=== PATIENT | male | born 1940 | race African-American/Black ===

== ENCOUNTER 2018-12-21 18:26 | Emergency (ER) | payer MEDICARE, OTHER ==
[~2018-12-21] VITALS: Ht 177.8 cm; Wt 97.5 kg
[~2018-12-21 18:26] MED LIST: BRIM5DRO2 OP; CIPR500T94 PO; LATA2.5D3 EACHEYE; TAMS0.4C97 PO
[2018-12-21 19:30] LABS: BILIRUBIN,URINE MODERATE (NEG); CLARITY,URINE CLOUDY; COLOR,URINE RED; NITRITE,URINE NEGATIVE (NEG); PH,URINE 6.5; PROTEIN,URINE 100 mg/dL (NEG-TRACE)
[2018-12-21 19:39] LABS: BACTERIA,URINE 0 /HPF (0-FEW); RBC,URINE TNTC /HPF (0-2); SQUAMOUS EPITHELIAL CELL,UR OCC /LPF; WBC,URINE 0 /HPF (0-4)
[2018-12-21] MEDS ORDERED: IV NORMAL SALINE 1000ML BAG 1,000 ML IV ONE (19:45)
--- NOTE | 2018-12-21 20:01 | PHYS DOC ---
Past Medical History Past Medical History: No Pertinent History Past Surgical History: No Surgical History Alcohol Use: None Drug Use: None Adult General Chief Complaint Chief Complaint: HIP PAIN HPI HPI Patient is a 78 year old male who presents with SI joint pain. He states the pain started two weeks ago. He describes it as a rubbing/crushing pain with no radiation. Sitting and bending over makes his pain worse. Standing, laying down, and urination relieves his pain. He denies any trauma to the area. Additionally, he reports hematuria that started two days ago. Patient denies any numbness or tingling in his right leg. [] Review of Systems Review of Systems Constitutional: Denies fever or chills [] Eyes: Denies redness or eye pain [] HENT: Denies nasal congestion or sore throat [] Respiratory: Denies cough or shortness of breath [] Cardiovascular: Denies chest pain or palpitations [] GI: Denies abdominal pain, nausea, vomiting, bloody stools or diarrhea [] : Reports hematuria, denies dysuria [] Musculoskeletal: Reports right sided SI joint pain, denies knee or ankle pain [] Integument: Denies rash or skin lesions [] Neurologic: Denies headache, focal weakness or sensory changes [] Complete systems were reviewed and found to be within normal limits, except as documented in this note. Current Medications Current Medications Current Medications Medications (Trade) Dose Ordered Sig/Geovany Start Time Stop Time Status Last Admin Dose Admin Dexamethasone Sodium Phosphate (Decadron) 10 mg 1X ONCE 12/21/18 21:00 12/21/18 21:01 DC 12/21/18 21:08 10 MG Fentanyl Citrate (Fentanyl 2ml Vial) 50 mcg 1X ONCE 12/21/18 21:00 12/21/18 21:01 DC 12/21/18 21:08 50 MCG Sodium Chloride 1,000 ml @ 1,000 mls/hr 1X ONCE 12/21/18 19:45 12/21/18 20:44 DC 12/21/18 20:12 1,000 MLS/HR Allergies Allergies Allergies Coded Allergies Type Severity Reaction Last Updated Verified No Known Drug Allergies 12/13/14 No Physical Exam Physical Exam Constitutional: No acute distress, non-toxic appearance. [] HENT: Normocephalic, atraumatic, bilateral external ears normal. [] Eyes: EOMI, conjunctiva normal, no discharge. [] Neck: Normal range of motion, no tenderness, supple. [] Cardiovascular:Heart rate regular rhythm, no murmur [] Lungs & Thorax: Bilateral breath sounds clear to auscultation [] Abdomen: Bowel sounds normal, soft, no tenderness, no rebound, rigidity, or guarding. [] Skin: Warm, dry, no erythema, no rash. [] Back: Right SI joint pain, no midline lumbar or thoracic pain, no CVA tenderness. [] Extremities: No tenderness, no cyanosis, no edema. [] Neurologic: Alert and oriented X 3, no focal deficits noted. [] Psychologic: Affect normal, mood normal. [] Current Patient Data Vital Signs Vital Signs Date Time Temp Pulse Resp B/P (MAP) Pulse Ox O2 Delivery O2 Flow Rate FiO2 12/21/18 21:00 70 16 140/80 (100) 99 Room Air 12/21/18 19:00 98.5 98.5 Lab Values Laboratory Tests Test 12/21/18 18:50 12/21/18 20:00 Urine Collection Type Unknown Urine Color Red Urine Clarity Cloudy Urine pH 6.5 Urine Specific [place] 1.025 Urine Protein 100 mg/dL (NEG-TRACE) Urine Glucose (UA) Negative mg/dL (NEG) Urine Ketones (Stick) Trace mg/dL (NEG) Urine Blood Large (NEG) Urine Nitrite Negative (NEG) Urine Bilirubin Moderate (NEG) Urine Urobilinogen Dipstick 1.0 mg/dL (0.2 mg/dL) Urine Leukocyte Esterase Small (NEG) Urine RBC Tntc /HPF (0-2) Urine WBC 0 /HPF (0-4) Urine Squamous Epithelial Cells Occ /LPF Urine Bacteria 0 /HPF (0-FEW) White Blood Count 11.6 x10^3/uL (4.0-11.0) H Red Blood Count 4.81 x10^6/uL (4.30-5.70) Hemoglobin 13.2 g/dL (13.0-17.5) Hematocrit 40.7 % (39.0-53.0) Mean Corpuscular Volume 85 fL (79-100) Mean Corpuscular Hemoglobin 28 pg (25-35) Mean Corpuscular Hemoglobin Concent 33 g/dL (31-37) Red Cell Distribution Width 14.9 % (11.5-14.5) H Platelet Count 263 x10^3/uL (140-400) Neutrophils (%) (Auto) 62 % (31-73) Lymphocytes (%) (Auto) 22 % (24-48) L Monocytes (%) (Auto) 12 % (0-9) H Eosinophils (%) (Auto) 3 % (0-3) Basophils (%) (Auto) 1 % (0-3) Neutrophils # (Auto) 7.2 x10^3uL (1.8-7.7) Lymphocytes # (Auto) 2.6 x10^3/uL (1.0-4.8) Monocytes # (Auto) 1.4 x10^3/uL (0.0-1.1) H Eosinophils # (Auto) 0.3 x10^3/uL (0.0-0.7) Basophils # (Auto) 0.1 x10^3/uL (0.0-0.2) Prothrombin Time 13.9 SEC (11.7-14.0) Prothrombin Time INR 1.1 (0.8-1.1) PTT 32 SEC (24-38) Sodium Level 144 mmol/L (136-145) Potassium Level 4.5 mmol/L (3.5-5.1) Chloride Level 106 mmol/L (98-107) Carbon Dioxide Level 28 mmol/L (21-32) Anion Gap 10 (6-14) Blood Urea Nitrogen 15 mg/dL (8-26) Creatinine 1.4 mg/dL (0.7-1.3) H Estimated GFR (Cockcroft-Gault) 59.3 BUN/Creatinine Ratio 11 (6-20) Glucose Level 101 mg/dL (70-99) H Calcium Level 8.6 mg/dL (8.5-10.1) Magnesium Level 2.0 mg/dL (1.8-2.4) Total Bilirubin 0.6 mg/dL (0.2-1.0) Aspartate Amino Transferase (AST) 16 U/L (15-37) Alanine Aminotransferase (ALT) 17 U/L (16-63) Alkaline Phosphatase 65 U/L (46-116) Total Protein 7.7 g/dL (6.4-8.2) Albumin 3.8 g/dL (3.4-5.0) Albumin/Globulin Ratio 1.0 (1.0-1.7) Lipase 115 U/L (73-393) Laboratory Tests 12/21/18 20:00 Laboratory Tests 12/21/18 20:00 EKG EKG [] Radiology/Procedures Radiology/Procedures PROCEDURE: CT ABDOMEN PELVIS WO CONTRAST CT study of the abdomen and pelvis without contrast Clinical indications: Hematuria. Right SI joint pain. History of bladder stones. TECHNIQUE: Noncontrast helical CT scanning of the abdomen and pelvis was performed. Without contrast, the sensitivity to detect artery pathology and GI tract pathology is decreased. PQRS compliance Statement One or more of the following individualized dose reduction techniques were utilized for this study: 1. Automated exposure control 2. Adjustment of the mA and/or kV according to patient size 3. Use of iterative reconstruction technique COMPARISON: November 21, 2014. FINDINGS: The liver and spleen and pancreas are homogeneous in appearance on this noncontrast study. The gallbladder is distended but no gallbladder wall thickening is evident. No extra hepatic biliary ductal dilatation is seen. No adrenal mass is evident. No focal aneurysmal dilatation of the abdominal aorta is seen. Right renal cysts are seen. No hydronephrosis or hydroureter is seen. No renal stone or ureteral stone is evident. There is a stone within the urinary bladder measuring 24 mm. The urinary bladder wall appears smooth in today's study. Prostate gland is enlarged measuring 5.6 cm in transverse dimension. The appendix is normal. No obstructive bowel pattern is evident. No free air or free fluid or mesenteric edema is seen. Calcified granuloma of the posterior right lung base is seen. No lytic process is seen. IMPRESSION: Urinary bladder stone. No ureteral stone or hydronephrosis or hydroureter is evident. Enlarged prostate gland. The gallbladder is distended but no gallbladder wall thickening is evident. The gallbladder measures almost 10 cm in length. No other acute abnormality of the abdomen or pelvis is evident. Electronically signed by: Robert Ceballos MD (12/21/2018 9:07 PM) [facility] DICTATED and SIGNED BY: ROBERT CEBALLOS MD[] Course & Med Decision Making Course & Med Decision Making 78 year-old male who presents right SI joint pain for 2 weeks. Additionally he reports painless hematuria for two days. He denies any trauma to the area, however due to the painless hematuria a CT scan was ordered. Symptomatic treatment provided with interval improvement. Labs and imaging were obtained and posted to chart. She demonstrated bladder stone likely causing his hematuria. Nature and provided with interval improvement. Encourage patient to take ibuprofen and Tylenol for any pain as well as providing a prescription for Norflex. Provided patient with referral to PM&R doctor and urologist. Patient stable for discharge with outpatient follow-up with PCP. Discussed findings and plan with patient and family, who acknowledge understanding and agreement. Dragon Disclaimer Dragon Disclaimer This electronic medical record was generated, in whole or in part, using a voice recognition dictation system. Departure Departure Impression: Primary Impression: Hematuria Additional Impressions: Bladder stone Renal cyst SI (sacroiliac) joint inflammation Disposition: HOME, SELF-CARE Condition: STABLE Referrals: NO PCP (PCP) LOBO ESPOSITO MD, BRIAN N MD Patient Instructions: Hematuria, Adult, Sacroiliac Joint Dysfunction Scripts Orphenadrine Citrate (ORPHENADRINE CITRATE) 100 Mg Tablet.er 100 MG PO BID PRN for MUSCLE PAIN, #14 Prov: ALONDRA BAXTER DO 12/21/18 Problem Qualifiers Primary Impression: Hematuria Hematuria type: unspecified type Qualified Codes: R31.9 - Hematuria, unspecified ALONDRA BAXTER DO Dec 21, 2018 20:01
[2018-12-21 20:15] LABS: BASO # 0.1 x10^3/uL (0.0-0.2); BASO % 1 % (0-3); EOS # 0.3 x10^3/uL (0.0-0.7); EOS % 3 % (0-3); HEMATOCRIT 40.7 % (39.0-53.0); HEMOGLOBIN 13.2 g/dL (13.0-17.5); LYMPH # 2.6 x10^3/uL (1.0-4.8); LYMPH % 22 % (24-48); MEAN CORPUSCULAR HEMOGLOBIN 28 pg (25-35); MEAN CORPUSCULAR HGB CONC 33 g/dL (31-37); MEAN CORPUSCULAR VOLUME 85 fL (79-100); MONO # 1.4 x10^3/uL (0.0-1.1); MONO % 12 % (0-9); NEUT # 7.2 x10^3uL (1.8-7.7); NEUT % 62 % (31-73); PLATELET COUNT 263 x10^3/uL (140-400); RED BLOOD COUNT 4.81 x10^6/uL (4.30-5.70); RED CELL DISTRIBUTION WIDTH 14.9 % (11.5-14.5); WHITE BLOOD COUNT 11.6 x10^3/uL (4.0-11.0)
[2018-12-21 20:20] LABS: CALCIUM 8.6 mg/dL (8.5-10.1); CREATININE 1.4 mg/dL (0.7-1.3); GFR 59.3; POTASSIUM 4.5 mmol/L (3.5-5.1)
[2018-12-21 20:24] LABS: PROTHROMBIN TIME PATIENT 13.9 SEC (11.7-14.0)
[2018-12-21 20:26] LABS: ALBUMIN 3.8 g/dL (3.4-5.0); TOTAL BILIRUBIN 0.6 mg/dL (0.2-1.0); TOTAL PROTEIN 7.7 g/dL (6.4-8.2)
[2018-12-21 21:00] VITALS: BP 140/80
[2018-12-21] MEDS ORDERED: fentaNYL PF VIAL 100 MCG/2 ML VIAL IV ONE (21:00)
[2018-12-21] MEDS ORDERED: DEXAMETHASONE SOD PHOS 20 MG/5 ML VIAL. IV ONE (21:00)
--- NOTE | 2018-12-21 21:11 | RAD ---
CT study of the abdomen and pelvis without contrast Clinical indications: Hematuria. Right SI joint pain. History of bladder stones. TECHNIQUE: Noncontrast helical CT scanning of the abdomen and pelvis was performed. Without contrast, the sensitivity to detect artery pathology and GI tract pathology is decreased. PQRS compliance Statement One or more of the following individualized dose reduction techniques were utilized for this study: 1. Automated exposure control 2. Adjustment of the mA and/or kV according to patient size 3. Use of iterative reconstruction technique COMPARISON: November 21, 2014. FINDINGS: The liver and spleen and pancreas are homogeneous in appearance on this noncontrast study. The gallbladder is distended but no gallbladder wall thickening is evident. No extra hepatic biliary ductal dilatation is seen. No adrenal mass is evident. No focal aneurysmal dilatation of the abdominal aorta is seen. Right renal cysts are seen. No hydronephrosis or hydroureter is seen. No renal stone or ureteral stone is evident. There is a stone within the urinary bladder measuring 24 mm. The urinary bladder wall appears smooth in today's study. Prostate gland is enlarged measuring 5.6 cm in transverse dimension. The appendix is normal. No obstructive bowel pattern is evident. No free air or free fluid or mesenteric edema is seen. Calcified granuloma of the posterior right lung base is seen. No lytic process is seen. IMPRESSION: Urinary bladder stone. No ureteral stone or hydronephrosis or hydroureter is evident. Enlarged prostate gland. The gallbladder is distended but no gallbladder wall thickening is evident. The gallbladder measures almost 10 cm in length. No other acute abnormality of the abdomen or pelvis is evident. Electronically signed by: Florentino Ceballos MD (12/21/2018 9:07 PM) [facility]
[2018-12-21] MEDS ORDERED: ORPH100T PO (21:36)
== END 2018-12-21 21:50 | disposition home or self-care (01) ==
LOC: ER 18:26
DX: M46.1 Sacroiliitis, not elsewhere classified (principal); N21.0 Calculus in bladder; N28.1 Cyst of kidney, acquired; R31.9 Hematuria, unspecified
CPT/HCPCS: 36415; 74176; 80053; 81001; 83690; 83735; 85025; 85610; 85730; 87086; 96374; 96375; 99284; J1100; J3010; J7030

== ENCOUNTER 2019-12-07 17:44 | Emergency (ER) | payer OTHER ==
[~2019-12-07] VITALS: Ht 177.8 cm; Wt 61.3 kg
[~2019-12-07 17:44] MED LIST changes: +ORPH100T PO
[2019-12-07] MEDS ORDERED: IV NORMAL SALINE 1000ML BAG 1,000 ML IV ONE (18:30)
--- NOTE | 2019-12-07 18:37 | PHYS DOC ---
Past Medical History Past Medical History: No Pertinent History (ONOFRE AMIN APRN) Past Surgical History: No Surgical History (ONOFRE AMIN APRN) Smoking Status: Former Smoker Alcohol Use: None Drug Use: None (ONOFRE AMIN APRN) Attending Signature I have participated in the care of this patient and I have reviewed and agree with all pertinent clinical information above including history, exam, and recommendations. (MEHUL SALAS MD) Adult General Chief Complaint Chief Complaint: BLOOD IN URINE HPI HPI Patient is a 79 year old female who presents with 1 week of blood in his urine and urinary frequency. He states that whenever he has this feeling also he feels like he has a bowel movement so he sits down he does have a bowel movement. He denies any diarrhea. States he has a history of acute renal failure, urinary tract infection, hematuria, kidney stone. He denies any abdominal pain, nausea, vomiting, chest pain, back pain, fever, shortness of air, diarrhea, numbness tingling, headache, dizziness, visual changes. Patient states he does not have pain with urination he just has pressure. Patient den ies any pain. (ONOFRE AMIN APRN) Review of Systems Review of Systems : dysuria or hematuria [] All other systems were reviewed and found to be within normal limits, except as documented in this note. (ONOFRE AMIN APRN) Current Medications Current Medications Current Medications Medications (Trade) Dose Ordered Sig/Geovany Start Time Stop Time Status Last Admin Dose Admin Acetaminophen/ Hydrocodone Bitart (Lortab 5/325) 1 tab 1X ONCE 12/07/19 21:00 12/07/19 21:01 DC 12/07/19 21:03 1 TAB Ceftriaxone Sodium (Rocephin) 1 gm 1X ONCE 12/07/19 19:45 12/07/19 19:46 DC 12/07/19 20:14 1 GM Info (CONTRAST GIVEN -- Rx MONITORING) 1 each PRN DAILY PRN 12/07/19 20:00 12/07/19 21:17 DC Iohexol (Omnipaque 300 Mg/ml) 60 ml 1X ONCE 12/07/19 20:00 12/07/19 20:01 DC 12/07/19 20:09 60 ML Sodium Chloride 1,000 ml @ 1,000 mls/hr 1X ONCE 12/07/19 18:30 12/07/19 19:29 DC 12/07/19 19:21 1,000 MLS/HR (MEHUL SALAS MD) Allergies Allergies Allergies Coded Allergies Type Severity Reaction Last Updated Verified No Known Drug Allergies 12/13/14 No (MEHUL SALAS MD) Physical Exam Physical Exam Constitutional: Well developed, well nourished, no acute distress, non-toxic appearance. [] HENT: Normocephalic, atraumatic, bilateral external ears normal, oropharynx moist, no oral exudates, nose normal. [] Eyes: PERRLA, EOMI, conjunctiva normal, no discharge. [] Neck: Normal range of motion, no tenderness, supple, no stridor. [] Cardiovascular:Heart rate regular rhythm, no murmur [] Lungs & Thorax: Bilateral breath sounds clear to auscultation [] Abdomen: Bowel sounds normal, soft, no tenderness, no masses, no pulsatile masses. [] Skin: Warm, dry, no erythema, no rash. [] Back: No tenderness, no CVA tenderness. [] Extremities: No tenderness, no cyanosis, no clubbing, ROM intact, no edema. [] Neurologic: Alert and oriented X 3, normal motor function, normal sensory function, no focal deficits noted. [] Psychologic: Affect normal, judgement normal, mood normal. Normal physical exam [] (ONOFRE AMIN APRN) Current Patient Data Vital Signs Vital Signs Date Time Temp Pulse Resp B/P (MAP) Pulse Ox O2 Delivery O2 Flow Rate FiO2 12/07/19 21:03 18 95 Room Air 12/07/19 20:40 72 178/78 (111) 12/07/19 17:57 98.1 98.1 (MEHUL SALAS MD) Lab Values Laboratory Tests Test 12/07/19 17:51 12/07/19 18:10 12/07/19 19:07 Urine Collection Type Unknown Urine Color Red Urine Clarity Bloody Urine pH (<5.0-8.0) Urine Specific [place] (1.000-1.030) Urine Protein mg/dL (NEG-TRACE) Urine Glucose (UA) mg/dL (NEG) Urine Ketones (Stick) mg/dL (NEG) Urine Blood (NEG) Urine Nitrite (NEG) Urine Bilirubin (NEG) Urine Urobilinogen Dipstick mg/dL (0.2 mg/dL) Urine Leukocyte Esterase (NEG) Urine RBC Field obscured /HPF (0-2) Urine WBC 20-40 /HPF (0-4) Urine Squamous Epithelial Cells Occ /LPF Urine Bacteria Many /HPF (0-FEW) White Blood Count 11.2 x10^3/uL (4.0-11.0) H Red Blood Count 4.69 x10^6/uL (4.30-5.70) Hemoglobin 12.9 g/dL (13.0-17.5) L Hematocrit 39.9 % (39.0-53.0) Mean Corpuscular Volume 85 fL (79-100) Mean Corpuscular Hemoglobin 28 pg (25-35) Mean Corpuscular Hemoglobin Concent 32 g/dL (31-37) Red Cell Distribution Width 14.6 % (11.5-14.5) H Platelet Count 327 x10^3/uL (140-400) Neutrophils (%) (Auto) 59 % (31-73) Lymphocytes (%) (Auto) 28 % (24-48) Monocytes (%) (Auto) 10 % (0-9) H Eosinophils (%) (Auto) 2 % (0-3) Basophils (%) (Auto) 1 % (0-3) Neutrophils # (Auto) 6.6 x10^3/uL (1.8-7.7) Lymphocytes # (Auto) 3.1 x10^3/uL (1.0-4.8) Monocytes # (Auto) 1.1 x10^3/uL (0.0-1.1) Eosinophils # (Auto) 0.2 x10^3/uL (0.0-0.7) Basophils # (Auto) 0.1 x10^3/uL (0.0-0.2) Prothrombin Time 13.1 SEC (11.7-14.0) Prothrombin Time INR 1.0 (0.8-1.1) Sodium Level 137 mmol/L (136-145) Potassium Level 4.3 mmol/L (3.5-5.1) Chloride Level 102 mmol/L (98-107) Carbon Dioxide Level 27 mmol/L (21-32) Anion Gap 8 (6-14) Blood Urea Nitrogen 13 mg/dL (8-26) Creatinine 1.4 mg/dL (0.7-1.3) H Estimated GFR (Cockcroft-Gault) 59.2 BUN/Creatinine Ratio 9 (6-20) Glucose Level 108 mg/dL (70-99) H Calcium Level 9.1 mg/dL (8.5-10.1) Total Bilirubin 0.5 mg/dL (0.2-1.0) Aspartate Amino Transferase (AST) 18 U/L (15-37) Alanine Aminotransferase (ALT) 20 U/L (16-63) Alkaline Phosphatase 65 U/L (46-116) Total Protein 7.7 g/dL (6.4-8.2) Albumin 3.8 g/dL (3.4-5.0) Albumin/Globulin Ratio 1.0 (1.0-1.7) Laboratory Tests 12/07/19 18:10 Laboratory Tests 12/07/19 19:07 (MEHUL SALAS MD) Lab Values Laboratory Tests Test 12/07/19 17:51 12/07/19 18:10 12/07/19 19:07 Urine Collection Type Unknown Urine Color Red Urine Clarity Bloody Urine pH (<5.0-8.0) Urine Specific [place] (1.000-1.030) Urine Protein mg/dL (NEG-TRACE) Urine Glucose (UA) mg/dL (NEG) Urine Ketones (Stick) mg/dL (NEG) Urine Blood (NEG) Urine Nitrite (NEG) Urine Bilirubin (NEG) Urine Urobilinogen Dipstick mg/dL (0.2 mg/dL) Urine Leukocyte Esterase (NEG) Urine RBC Field obscured /HPF (0-2) Urine WBC 20-40 /HPF (0-4) Urine Squamous Epithelial Cells Occ /LPF Urine Bacteria Many /HPF (0-FEW) White Blood Count 11.2 x10^3/uL (4.0-11.0) H Red Blood Count 4.69 x10^6/uL (4.30-5.70) Hemoglobin 12.9 g/dL (13.0-17.5) L Hematocrit 39.9 % (39.0-53.0) Mean Corpuscular Volume 85 fL (79-100) Mean Corpuscular Hemoglobin 28 pg (25-35) Mean Corpuscular Hemoglobin Concent 32 g/dL (31-37) Red Cell Distribution Width 14.6 % (11.5-14.5) H Platelet Count 327 x10^3/uL (140-400) Neutrophils (%) (Auto) 59 % (31-73) Lymphocytes (%) (Auto) 28 % (24-48) Monocytes (%) (Auto) 10 % (0-9) H Eosinophils (%) (Auto) 2 % (0-3) Basophils (%) (Auto) 1 % (0-3) Neutrophils # (Auto) 6.6 x10^3/uL (1.8-7.7) Lymphocytes # (Auto) 3.1 x10^3/uL (1.0-4.8) Monocytes # (Auto) 1.1 x10^3/uL (0.0-1.1) Eosinophils # (Auto) 0.2 x10^3/uL (0.0-0.7) Basophils # (Auto) 0.1 x10^3/uL (0.0-0.2) Prothrombin Time 13.1 SEC (11.7-14.0) Prothrombin Time INR 1.0 (0.8-1.1) Sodium Level 137 mmol/L (136-145) Potassium Level 4.3 mmol/L (3.5-5.1) Chloride Level 102 mmol/L (98-107) Carbon Dioxide Level 27 mmol/L (21-32) Anion Gap 8 (6-14) Blood Urea Nitrogen 13 mg/dL (8-26) Creatinine 1.4 mg/dL (0.7-1.3) H Estimated GFR (Cockcroft-Gault) 59.2 BUN/Creatinine Ratio 9 (6-20) Glucose Level 108 mg/dL (70-99) H Calcium Level 9.1 mg/dL (8.5-10.1) Total Bilirubin 0.5 mg/dL (0.2-1.0) Aspartate Amino Transferase (AST) 18 U/L (15-37) Alanine Aminotransferase (ALT) 20 U/L (16-63) Alkaline Phosphatase 65 U/L (46-116) Total Protein 7.7 g/dL (6.4-8.2) Albumin 3.8 g/dL (3.4-5.0) Albumin/Globulin Ratio 1.0 (1.0-1.7) Laboratory Tests 12/07/19 18:10 Laboratory Tests 12/07/19 19:07 (ONOFRE AMIN APRN) EKG EKG [] (ONOFRE AMIN APRN) Radiology/Procedures Radiology/Procedures [] (ONOFRE AMIN APRN) Impressions: [facility] [address] [place] [address] IMAGING REPORT Signed PATIENT: EVAN HENRIQUEZ ACCOUNT: [id number] : 1940 LOCATION: ER AGE: 79 SEX: M EXAM STATUS: REG ER ORD. PHYSICIAN: ONOFRE AMIN APRN REASON: urinary sx, pressure in rectum, hx BPH and kidney stone PROCEDURE: CT ABD PELV W/ IV CONTRST ONLY Study: CT abdomen/pelvis with intravenous contrast Indication: Rectal pressure. Urinary symptoms. Provided history of BPH and renal stones. Comparison: 12/21/2018 Technique: Helical CT imaging performed of the abdomen and pelvis after the intravenous administration of 60 cc Omnipaque 300 contrast. Sagittal and coronal reformats were obtained. One or more of the following individualized dose reduction techniques were utilized for this examination: 1. Automated exposure control 2. Adjustment of the mA and/or kV according to patient size 3. Use of iterative reconstruction technique. Findings: Chest: Potential small hiatal hernia. Liver: Unchanged. Gallbladder/Biliary Tree: Similar to slightly decreased size of the gallbladder. There may be some layering sludge or particulate stones. No CT evidence for acute cholecystitis. Pancreas: Unremarkable. Spleen: Unremarkable. Adrenal Glands: Unremarkable. Kidneys/Ureters/Bladder: Mild perinephric fat stranding as was present previously. Low-attenuation foci within the right kidney measuring simple attenuation and consistent with cysts. A few smaller low-attenuation foci on the left are too small to fully characterize based on size. No follow-up imaging is needed per consensus recommendation based on imaging criteria. No hydroureteronephrosis. Heterogeneous density masslike structure at the base of the urinary bladder that appears to be in continuity with the prostate. Redemonstrated ovoid peripherally mineralized structure along the upper margin of this mass. The rest of the bladder is thin walled. Faint stranding along the anterior margin of the bladder, image 62 series 2 is similar to the comparison. Reproductive Organs: Prostatic enlargement that is unchanged and measuring approximate 5.8 cm transverse. Colon: Unremarkable. Appendix: Normal. Small Bowel: Nonobstructed. Stomach: No newly seen abnormality. Vasculature: Unchanged aortic caliber. Lymph Nodes: Unremarkable. Peritoneum and Body Wall: No free fluid or air. Fat-containing hernia on the left. 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 Multilevel facet degeneration with associated osseous neural foraminal encroachment most notable at the lower lumbar spine. Degenerative changes at both hips and partial fusion across the sacroiliac joints Miscellaneous: None. Impression: 1. The prostate gland is again noted to be enlarged. Prominent heterogeneous density masslike structure emanating from the prostate gland along the base of the urinary bladder appears similar in size to the prior given differences in technique. Overlying bladder calculus is unchanged. The appearance is most typical of benign prostatic hypertrophy but an underlying prostate mass is not fully excluded. Recommend correlation with PSA levels if not done so recently. 2. No newly seen abnormality of either kidney. No hydroureteronephrosis. 3. Slight decrease in size of the gallbladder. There may be layering sludge/particulate stones but no CT evidence for acute cholecystitis. 4. Additional chronic findings as above. Electronically signed by: KELSI CANDELARIO MD (12/07/2019 8:31 PM) [id number] DICTATED and SIGNED BY: KELSI CANDELARIO MD DATE: 12/07/192030 (ONOFRE AMIN APRN) Course & Med Decision Making Course & Med Decision Making Pertinent Labs and Imaging studies reviewed. (See chart for details) Abdomen soft and nontender. No CVA tenderness. No extremity edema. Patient does have bright red blood in his urine. Alert and oriented. Ambulatory with steady gait. Skin pink warm and dry. Vital signs within normal limits. Afebrile. [] (ONOFRE AMIN APRN) Dragon Disclaimer Dragon Disclaimer This electronic medical record was generated, in whole or in part, using a voice recognition dictation system. (ONOFRE AMIN APRN) Departure Departure Impression: Primary Impression: Hematuria Additional Impression: UTI (urinary tract infection) Disposition: 01 HOME, SELF-CARE Condition: STABLE Referrals: NO PCP (PCP) Patient Instructions: Benign Prostatic Hypertrophy, Urinary Tract Infection Additional Instructions: Follow up with Urology or your urologist as soon as possible. Take medication as soon as possible. Scripts Phenazopyridine Hcl (PYRIDIUM) 200 Mg Tablet 1 TAB PO TID for urinary discomfort for 3 Days, #9 TAB 0 Refills Prov: ONOFRE AMIN APRN 12/07/19 Ciprofloxacin Hcl (CIPRO) 500 Mg Tablet 1 TAB PO BID for 10 Days, #20 TAB 0 Refills Prov: ONOFRE AMIN APRN 12/07/19 Problem Qualifiers Primary Impression: Hematuria Hematuria type: gross Qualified Codes: R31.0 - Gross hematuria Additional Impression: UTI (urinary tract infection) Urinary tract infection type: site unspecified Hematuria presence: with hematuria Qualified Codes: N39.0 - Urinary tract infection, site not specified; R31.9 - Hematuria, unspecified ONOFRE AMIN APRN Dec 07, 2019 18:37 MEHUL SALAS MD Dec 08, 2019 02:21
[2019-12-07 18:43] LABS: BASO # 0.1 x10^3/uL (0.0-0.2); BASO % 1 % (0-3); EOS # 0.2 x10^3/uL (0.0-0.7); EOS % 2 % (0-3); HEMATOCRIT 39.9 % (39.0-53.0); HEMOGLOBIN 12.9 g/dL (13.0-17.5); LYMPH # 3.1 x10^3/uL (1.0-4.8); LYMPH % 28 % (24-48); MEAN CORPUSCULAR HEMOGLOBIN 28 pg (25-35); MEAN CORPUSCULAR HGB CONC 32 g/dL (31-37); MEAN CORPUSCULAR VOLUME 85 fL (79-100); MONO # 1.1 x10^3/uL (0.0-1.1); MONO % 10 % (0-9); NEUT # 6.6 x10^3/uL (1.8-7.7); NEUT % 59 % (31-73); PLATELET COUNT 327 x10^3/uL (140-400); RED BLOOD COUNT 4.69 x10^6/uL (4.30-5.70); RED CELL DISTRIBUTION WIDTH 14.6 % (11.5-14.5); WHITE BLOOD COUNT 11.2 x10^3/uL (4.0-11.0)
[2019-12-07 19:02] LABS: CLARITY,URINE BLOODY
[2019-12-07 19:03] LABS: RBC,URINE FIELD OBSCURED /HPF (0-2); WBC,URINE 20-40 /HPF (0-4)
[2019-12-07 19:09] LABS: BACTERIA,URINE MANY /HPF (0-FEW); SQUAMOUS EPITHELIAL CELL,UR OCC /LPF
[2019-12-07 19:10] LABS: COLOR,URINE RED
[2019-12-07 19:22] LABS: CALCIUM 9.1 mg/dL (8.5-10.1); CREATININE 1.4 mg/dL (0.7-1.3); GFR 59.2; POTASSIUM 4.3 mmol/L (3.5-5.1)
[2019-12-07 19:27] LABS: PROTHROMBIN TIME PATIENT 13.1 SEC (11.7-14.0)
[2019-12-07 19:28] LABS: ALBUMIN 3.8 g/dL (3.4-5.0); TOTAL BILIRUBIN 0.5 mg/dL (0.2-1.0); TOTAL PROTEIN 7.7 g/dL (6.4-8.2)
[2019-12-07] MEDS ORDERED: cefTRIAXone IV Push 1 GM VIAL. IVP ONE (19:45)
[2019-12-07] MEDS ORDERED: IOHEXOL 300 MG/ML 100ML VIAL. IV ONE (20:00)
[2019-12-07] MEDS ORDERED: CONTRAST GIVEN. MC PRN (20:00)
--- NOTE | 2019-12-07 20:34 | RAD ---
Study: CT abdomen/pelvis with intravenous contrast Indication: Rectal pressure. Urinary symptoms. Provided history of BPH and renal stones. Comparison: 12/21/2018 Technique: Helical CT imaging performed of the abdomen and pelvis after the intravenous administration of 60 cc Omnipaque 300 contrast. Sagittal and coronal reformats were obtained. One or more of the following individualized dose reduction techniques were utilized for this examination: 1. Automated exposure control 2. Adjustment of the mA and/or kV according to patient size 3. Use of iterative reconstruction technique. Findings: Chest: Potential small hiatal hernia. Liver: Unchanged. Gallbladder/Biliary Tree: Similar to slightly decreased size of the gallbladder. There may be some layering sludge or particulate stones. No CT evidence for acute cholecystitis. Pancreas: Unremarkable. Spleen: Unremarkable. Adrenal Glands: Unremarkable. Kidneys/Ureters/Bladder: Mild perinephric fat stranding as was present previously. Low-attenuation foci within the right kidney measuring simple attenuation and consistent with cysts. A few smaller low-attenuation foci on the left are too small to fully characterize based on size. No follow-up imaging is needed per consensus recommendation based on imaging criteria. No hydroureteronephrosis. Heterogeneous density masslike structure at the base of the urinary bladder that appears to be in continuity with the prostate. Redemonstrated ovoid peripherally mineralized structure along the upper margin of this mass. The rest of the bladder is thin walled. Faint stranding along the anterior margin of the bladder, image 62 series 2 is similar to the comparison. Reproductive Organs: Prostatic enlargement that is unchanged and measuring approximate 5.8 cm transverse. Colon: Unremarkable. Appendix: Normal. Small Bowel: Nonobstructed. Stomach: No newly seen abnormality. Vasculature: Unchanged aortic caliber. Lymph Nodes: Unremarkable. Peritoneum and Body Wall: No free fluid or air. Fat-containing hernia on the left. 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 Multilevel facet degeneration with associated osseous neural foraminal encroachment most notable at the lower lumbar spine. Degenerative changes at both hips and partial fusion across the sacroiliac joints Miscellaneous: None. Impression: 1. The prostate gland is again noted to be enlarged. Prominent heterogeneous density masslike structure emanating from the prostate gland along the base of the urinary bladder appears similar in size to the prior given differences in technique. Overlying bladder calculus is unchanged. The appearance is most typical of benign prostatic hypertrophy but an underlying prostate mass is not fully excluded. Recommend correlation with PSA levels if not done so recently. 2. No newly seen abnormality of either kidney. No hydroureteronephrosis. 3. Slight decrease in size of the gallbladder. There may be layering sludge/particulate stones but no CT evidence for acute cholecystitis. 4. Additional chronic findings as above. Electronically signed by: KELSI CANDELARIO MD (12/07/2019 8:31 PM) [id number]
[2019-12-07 20:40] VITALS: BP 178/78
[2019-12-07] MEDS ORDERED: CIPR500T94 PO (20:40)
[2019-12-07] MEDS ORDERED: PHEN-318 PO (20:49)
[2019-12-07] MEDS ORDERED: HYDROcodone/APAP 5/325MG 1 TAB TABLET PO ONE (21:00)
== END 2019-12-07 21:17 | disposition home or self-care (01) ==
LOC: ER 17:44
DX: N39.0 Urinary tract infection, site not specified (principal); R31.0 Gross hematuria; Z87.891 Personal history of nicotine dependence
CPT/HCPCS: 36415; 74177; 80053; 81001; 85025; 85610; 96374; 99285; J0696; J7030; Q9967